=== PATIENT | male | born 1950 | race Caucasian/White ===

== ENCOUNTER 2016-11-18 21:53 | Inpatient (IN) | payer MEDICAID, MEDICARE, OTHER ==
[~2016-11-18] VITALS: Ht 172.7 cm; Wt 57.0 kg
[~2016-11-18 21:53] MED LIST: ALBU2.5V NPPB; ALBU8.5H5 INH; AMIT25TA PO; ASPI-515 PO; CEFD300C37 PO; DIVA125T2 PO; DIVA125T3 PO; DIVA250T4 PO; DOXY100T PO; FLUO20CA8 PO; FLUT1DIS3 INH; FOLI-17 PO; GABA100C PO; HYDR-3138 PO; LEVO500T33 PO; MAGN400T26 PO; METH4TAB2 PO; METO-93 PO; METO25TA35 PO; MULT-750 PO; PRED10TA PO; PRED10TA14 PO; PRED20TA PO; SIMV20TA PO; SODI1TAB PO; THIA100T27 PO; TIOT18CA INH
[2016-11-19] MEDS ORDERED: HYDROcodone/APAP 5/325 TABLET PO PRN
[2016-11-19] MEDS ORDERED: ALBUTEROL SULFATE 2.5 MG/3 ML HHN PRN
[2016-11-19] MEDS ORDERED: LORazepam 2 MG/ML, 1ML IVPush PRN
[2016-11-19] MEDS ORDERED: morphine SULFATE 10 MG/ML, 1ML IVPush PRN
[2016-11-19] MEDS ORDERED: TEMAZEPAM 15 MG CAPSULE PO PRN
[2016-11-19] MEDS ORDERED: ACETAMINOPHEN 325 MG TABLET PO PRN
[2016-11-19] MEDS: morphine SULFATE ORAL.CONC 20 MG/ML PO PRN ×3 (02:20→17:54)
[2016-11-19] MEDS: FLUTICASONE/VILANTEROL 100-25MCG/INH INH SCH (09:00)
[2016-11-19] MEDS: IPRATROPIUM 0.5 MG/2.5 ML INHA HHN SCH ×3 (09:00→21:00)
[2016-11-19] MEDS: FLUOXETINE 20 MG CAPSULE PO SCH (09:58)
[2016-11-19] MEDS: THIAMINE 100MG TABLET PO SCH (09:58)
[2016-11-19] MEDS: DIVALPROEX 125 MG TABLET.DR PO SCH (09:58)
[2016-11-19] MEDS: MAGNESIUM OXIDE 400 MG TABLET PO SCH ×2 (09:58→21:00)
[2016-11-19] MEDS: GABAPENTIN 100 MG CAPSULE PO SCH ×3 (09:58→21:00)
[2016-11-19] MEDS: LORazepam INTENSOL 2 MG/ML BC PRN ×2 (13:04→23:22)
[2016-11-20] MEDS: IPRATROPIUM 0.5 MG/2.5 ML INHA HHN SCH (03:00)
[2016-11-20] MEDS: morphine SULFATE ORAL.CONC 20 MG/ML PO PRN ×2 (03:28→05:01)
[2016-11-20] MEDS: LORazepam INTENSOL 2 MG/ML BC PRN ×3 (03:54→21:30)
[2016-11-20] MEDS: FLUTICASONE/VILANTEROL 100-25MCG/INH INH SCH (08:30)
[2016-11-20] MEDS: MAGNESIUM OXIDE 400 MG TABLET PO SCH (08:30)
[2016-11-20] MEDS: GABAPENTIN 100 MG CAPSULE PO SCH (08:30)
[2016-11-20] MEDS: DIVALPROEX 125 MG TABLET.DR PO SCH (08:30)
[2016-11-20] MEDS: THIAMINE 100MG TABLET PO SCH (08:31)
[2016-11-20] MEDS: FLUOXETINE 20 MG CAPSULE PO SCH (08:31)
[2016-11-20] MEDS ORDERED: morphine SULFATE 125 MG in SODIUM CHLORIDE 0.9% 237.5 ML IV PRN (15:35)
[2016-11-20] MEDS ORDERED: LORazepam INTENSOL 2 MG/ML SL PRN (16:00)
[2016-11-20] MEDS ORDERED: morphine SULFATE ORAL.CONC 20 MG/ML SL PRN (16:00)
[2016-11-20] MEDS ORDERED: SCOPOLAMINE PATCH, 1.5MG PATCH.TD72 TD PRN (16:00)
[2016-11-20] MEDS ORDERED: ATROPINE OPHTH SOLN 1%, 5ML BC PRN (16:00)
[2016-11-20] MEDS ORDERED: PLEASE ENTER HEIGHT AND WEIGHT MC SCH (16:00)
[2016-11-20 22:30] VITALS: BP 144/83
[2016-11-20] MEDS ORDERED: LORazepam 2 MG/ML, 1ML IVPush ONE (23:30)
== END 2016-11-21 18:30 | disposition expired | DRG 291 ==
LOC: ED 21:57 → EDIP 23:15 → 3NW 23:37
PROVIDERS: ADMIT Internal Medicine
DX: I11.0 Hypertensive heart disease with heart failure (principal); J96.20 Acute and chronic respiratory failure, unspecified whether with hypoxia or hypercapnia; E43 Unspecified severe protein-calorie malnutrition; E51.2 Wernicke's encephalopathy; J44.1 Chronic obstructive pulmonary disease with (acute) exacerbation; F33.9 Major depressive disorder, recurrent, unspecified; D68.69 Other thrombophilia; Z68.1 Body mass index [BMI] 19.9 or less, adult; I50.32 Chronic diastolic (congestive) heart failure; Z51.5 Encounter for palliative care; E78.5 Hyperlipidemia, unspecified; R62.7 Adult failure to thrive; Z80.1 Family history of malignant neoplasm of trachea, bronchus and lung; Z99.81 Dependence on supplemental oxygen; F41.9 Anxiety disorder, unspecified; I48.0 Paroxysmal atrial fibrillation; D72.829 Elevated white blood cell count, unspecified; Z66 Do not resuscitate; Z87.891 Personal history of nicotine dependence
CPT/HCPCS: J2060; J2270; J7050